=== PATIENT | male | born 1985 | race Caucasian/White ===

== ENCOUNTER 2021-08-24 03:26 | Emergency (ER) | payer OTHER ==
[~2021-08-24] VITALS: Ht 182.9 cm; Wt 116.1 kg
[2021-08-24 03:46] VITALS: BP 135/76
== END 2021-08-24 06:13 | disposition home or self-care (01) ==
LOC: ER 03:26
DX: S67.193A Crushing injury of left middle finger, initial encounter (principal); W23.0XXA Caught, crushed, jammed, or pinched between moving objects, initial encounter; Y93.89 Activity, other specified; Y92.89 Other specified places as the place of occurrence of the external cause; Y99.8 Other external cause status
CPT/HCPCS: 73140